=== PATIENT | female | born 1975 | race Caucasian/White ===

== ENCOUNTER 2019-08-30 16:16 | Inpatient (IN) ==
[2019-08-30 19:39] LABS: BASOPHILS # (AUTO) 0.1 X10^3/uL (0.0-0.1); BASOPHILS % (AUTO) 0.4 % (0.2-1.0); HEMATOCRIT 20.3 % (36.0-47.0); LYMPHOCYTES # (AUTO) 0.5 X10^3/uL (1.3-2.9); LYMPHOCYTES % (AUTO) 3.5 % (21.0-51.0); MEAN CORPUSCULAR HEMOGLOBIN 26.6 pg (27.0-34.0); MEAN CORPUSCULAR HGB CONC 32.8 g/dL (33.0-35.0); MEAN PLATELET VOLUME 7.8 fL (7.4-11.0); MONOCYTES # (AUTO) 0.6 x10^3/uL (0.3-0.8); MONOCYTES % (AUTO) 4.2 % (0.0-13.0); NEUTROPHILS # (AUTO) 13.4 x10^3/uL (2.2-4.8); NEUTROPHILS % (AUTO) 91.9 % (42.0-75.0); PLATELET COUNT 360 X10^3/uL (150.0-450.0); RED CELL DISTRIBUTION WIDTH 15.1 % (11.6-16.5); WHITE BLOOD COUNT 14.6 X10^3/uL (3.6-10.0)
[2019-08-30 19:48] LABS: BAND NEUTROPHILS % 3 % (0-10); HEMOGLOBIN 6.7 g/dL (12.0-16.0)
[2019-08-30 19:49] LABS: PLATELET MORPHOLOGY COMMENT NORMAL (NORMAL)
[2019-08-30 19:54] LABS: ALBUMIN 1.9 g/dL (3.4-5.0); CALCIUM 8.4 mg/dL (8.5-10.1); COR CA(FOR HYPOALB) 10.1 mg/dL (8.5-10.1); CREATININE 3.56 mg/dL (0.55-1.02); TOTAL PROTEIN 8.7 g/dL (6.4-8.2)
[2019-08-31 05:41] LABS: BASOPHILS # (AUTO) 0.1 X10^3/uL (0.0-0.1); BASOPHILS % (AUTO) 1.1 % (0.2-1.0); EOSINOPHILS % (AUTO) 0.6 % (0.9-2.9); LYMPHOCYTES # (AUTO) 0.9 X10^3/uL (1.3-2.9); LYMPHOCYTES % (AUTO) 10.4 % (21.0-51.0); MEAN CORPUSCULAR HEMOGLOBIN 27.4 pg (27.0-34.0); MEAN CORPUSCULAR HGB CONC 33.6 g/dL (33.0-35.0); MEAN CORPUSCULAR VOLUME 81.6 fL (80.0-100.0); MEAN PLATELET VOLUME 8.4 fL (7.4-11.0); MONOCYTES # (AUTO) 0.5 x10^3/uL (0.3-0.8); MONOCYTES % (AUTO) 5.9 % (0.0-13.0); NEUTROPHILS # (AUTO) 6.9 x10^3/uL (2.2-4.8); PLATELET COUNT 277 X10^3/uL (150.0-450.0); RED BLOOD COUNT 2.19 X10^6/uL (3.5-5.4); RED CELL DISTRIBUTION WIDTH 15.1 % (11.6-16.5); WHITE BLOOD COUNT 8.5 X10^3/uL (3.6-10.0)
[2019-08-31 05:56] LABS: ALBUMIN 1.8 g/dL (3.4-5.0); CALCIUM 8.3 mg/dL (8.5-10.1); CARBON DIOXIDE 21.1 mmol/L (21-32); COR CA(FOR HYPOALB) 10.1 mg/dL (8.5-10.1); CREATININE 3.85 mg/dL (0.55-1.02); TOTAL PROTEIN 8.2 g/dL (6.4-8.2)
[2019-08-31 06:10] LABS: HEMATOCRIT 17.9 % (36.0-47.0)
[2019-08-31 09:14] VITALS: BMI 39.7
[2019-09-01 05:55] LABS: BASOPHILS # (AUTO) 0.1 X10^3/uL (0.0-0.1); BASOPHILS % (AUTO) 1.1 % (0.2-1.0); EOSINOPHILS # (AUTO) 0.1 x10^3/uL (0.0-0.2); EOSINOPHILS % (AUTO) 2.1 % (0.9-2.9); LYMPHOCYTES # (AUTO) 1.2 X10^3/uL (1.3-2.9); LYMPHOCYTES % (AUTO) 20.1 % (21.0-51.0); MEAN CORPUSCULAR HEMOGLOBIN 27.4 pg (27.0-34.0); MEAN CORPUSCULAR HGB CONC 33.7 g/dL (33.0-35.0); MEAN CORPUSCULAR VOLUME 81.5 fL (80.0-100.0); MONOCYTES # (AUTO) 0.4 x10^3/uL (0.3-0.8); MONOCYTES % (AUTO) 7.2 % (0.0-13.0); NEUTROPHILS # (AUTO) 4.1 x10^3/uL (2.2-4.8); NEUTROPHILS % (AUTO) 69.5 % (42.0-75.0); PLATELET COUNT 273 X10^3/uL (150.0-450.0); RED BLOOD COUNT 2.08 X10^6/uL (3.5-5.4); RED CELL DISTRIBUTION WIDTH 15.1 % (11.6-16.5); WHITE BLOOD COUNT 5.9 X10^3/uL (3.6-10.0)
[2019-09-01 05:56] LABS: ALANINE AMINOTRANSFERASE 6 Units/L (12-78); ALBUMIN 1.7 g/dL (3.4-5.0); ALKALINE PHOSPHATASE 66 Units/L (46-116); ASPARTATE AMINO TRANSFERASE 13 Units/L (15-37); BLOOD UREA NITROGEN 70 mg/dL (7-18); CARBON DIOXIDE 21.4 mmol/L (21-32); CHLORIDE 102 mmol/L (98-107); COR CA(FOR HYPOALB) 9.8 mg/dL (8.5-10.1); CREATININE 3.93 mg/dL (0.55-1.02); SODIUM 135 mmol/L (136-145); TOTAL PROTEIN 7.8 g/dL (6.4-8.2); eGFR NON BLACK RACES 13 (>60)
[2019-09-01 06:07] LABS: HEMOGLOBIN 5.7 g/dL (12.0-16.0)
[2019-09-02 06:18] LABS: BASOPHILS # (AUTO) 0.1 X10^3/uL (0.0-0.1); BASOPHILS % (AUTO) 1.1 % (0.2-1.0); EOSINOPHILS # (AUTO) 0.2 x10^3/uL (0.0-0.2); EOSINOPHILS % (AUTO) 2.3 % (0.9-2.9); HEMATOCRIT 23.9 % (36.0-47.0); LYMPHOCYTES # (AUTO) 1.1 X10^3/uL (1.3-2.9); LYMPHOCYTES % (AUTO) 16.8 % (21.0-51.0); MEAN CORPUSCULAR HEMOGLOBIN 27.9 pg (27.0-34.0); MEAN CORPUSCULAR HGB CONC 33.6 g/dL (33.0-35.0); MEAN CORPUSCULAR VOLUME 83.1 fL (80.0-100.0); MEAN PLATELET VOLUME 8.6 fL (7.4-11.0); MONOCYTES # (AUTO) 0.3 x10^3/uL (0.3-0.8); MONOCYTES % (AUTO) 4.9 % (0.0-13.0); NEUTROPHILS # (AUTO) 5.1 x10^3/uL (2.2-4.8); NEUTROPHILS % (AUTO) 74.9 % (42.0-75.0); PLATELET COUNT 334 X10^3/uL (150.0-450.0); RED BLOOD COUNT 2.87 X10^6/uL (3.5-5.4); RED CELL DISTRIBUTION WIDTH 15.1 % (11.6-16.5); WHITE BLOOD COUNT 6.8 X10^3/uL (3.6-10.0)
[2019-09-02 06:40] LABS: ALANINE AMINOTRANSFERASE 8 Units/L (12-78); ALBUMIN 1.9 g/dL (3.4-5.0); ALKALINE PHOSPHATASE 67 Units/L (46-116); ASPARTATE AMINO TRANSFERASE 14 Units/L (15-37); BLOOD UREA NITROGEN 62 mg/dL (7-18); CALCIUM 8.3 mg/dL (8.5-10.1); CARBON DIOXIDE 19.5 mmol/L (21-32); CHLORIDE 104 mmol/L (98-107); CREATININE 3.31 mg/dL (0.55-1.02); SODIUM 137 mmol/L (136-145); TOTAL PROTEIN 8.2 g/dL (6.4-8.2); eGFR NON BLACK RACES 16 (>60)
[2019-09-03 06:23] LABS: ALANINE AMINOTRANSFERASE 7 Units/L (12-78); ALBUMIN 1.7 g/dL (3.4-5.0); ALKALINE PHOSPHATASE 67 Units/L (46-116); ASPARTATE AMINO TRANSFERASE 11 Units/L (15-37); BLOOD UREA NITROGEN 49 mg/dL (7-18); CALCIUM 7.8 mg/dL (8.5-10.1); CHLORIDE 106 mmol/L (98-107); COR CA(FOR HYPOALB) 9.6 mg/dL (8.5-10.1); CREATININE 2.78 mg/dL (0.55-1.02); SODIUM 137 mmol/L (136-145); TOTAL PROTEIN 7.7 g/dL (6.4-8.2); eGFR NON BLACK RACES 20 (>60)
[2019-09-03 06:45] LABS: BASOPHILS # (AUTO) 0.1 X10^3/uL (0.0-0.1); BASOPHILS % (AUTO) 0.9 % (0.2-1.0); EOSINOPHILS # (AUTO) 0.2 x10^3/uL (0.0-0.2); EOSINOPHILS % (AUTO) 2.4 % (0.9-2.9); HEMATOCRIT 23.6 % (36.0-47.0); HEMOGLOBIN 7.9 g/dL (12.0-16.0); LYMPHOCYTES # (AUTO) 1.3 X10^3/uL (1.3-2.9); LYMPHOCYTES % (AUTO) 18.6 % (21.0-51.0); MEAN CORPUSCULAR HEMOGLOBIN 27.9 pg (27.0-34.0); MEAN CORPUSCULAR HGB CONC 33.5 g/dL (33.0-35.0); MEAN CORPUSCULAR VOLUME 83.1 fL (80.0-100.0); MEAN PLATELET VOLUME 7.9 fL (7.4-11.0); MONOCYTES # (AUTO) 0.3 x10^3/uL (0.3-0.8); MONOCYTES % (AUTO) 4.8 % (0.0-13.0); NEUTROPHILS # (AUTO) 5.1 x10^3/uL (2.2-4.8); NEUTROPHILS % (AUTO) 73.3 % (42.0-75.0); PLATELET COUNT 344 X10^3/uL (150.0-450.0); RED BLOOD COUNT 2.84 X10^6/uL (3.5-5.4); RED CELL DISTRIBUTION WIDTH 15.5 % (11.6-16.5); WHITE BLOOD COUNT 6.9 X10^3/uL (3.6-10.0)
[2019-09-03 07:40] LABS: PLATELET MORPHOLOGY COMMENT NORMAL (NORMAL)
[2019-09-04 05:27] LABS: ALANINE AMINOTRANSFERASE 6 Units/L (12-78); ALBUMIN 1.7 g/dL (3.4-5.0); ALKALINE PHOSPHATASE 60 Units/L (46-116); ASPARTATE AMINO TRANSFERASE 11 Units/L (15-37); BLOOD UREA NITROGEN 43 mg/dL (7-18); CALCIUM 7.8 mg/dL (8.5-10.1); CARBON DIOXIDE 19.2 mmol/L (21-32); CHLORIDE 108 mmol/L (98-107); COR CA(FOR HYPOALB) 9.6 mg/dL (8.5-10.1); CREATININE 2.74 mg/dL (0.55-1.02); SODIUM 139 mmol/L (136-145); TOTAL PROTEIN 7.4 g/dL (6.4-8.2); eGFR NON BLACK RACES 20 (>60)
[2019-09-04 06:04] LABS: BASOPHILS % (AUTO) 0.2 % (0.2-1.0); EOSINOPHILS # (AUTO) 0.3 x10^3/uL (0.0-0.2); EOSINOPHILS % (AUTO) 5.1 % (0.9-2.9); HEMATOCRIT 27.8 % (36.0-47.0); HEMOGLOBIN 9.3 g/dL (12.0-16.0); LYMPHOCYTES # (AUTO) 1.2 X10^3/uL (1.3-2.9); LYMPHOCYTES % (AUTO) 19.4 % (21.0-51.0); MEAN CORPUSCULAR HEMOGLOBIN 28.2 pg (27.0-34.0); MEAN CORPUSCULAR HGB CONC 33.3 g/dL (33.0-35.0); MEAN CORPUSCULAR VOLUME 84.7 fL (80.0-100.0); MEAN PLATELET VOLUME 7.4 fL (7.4-11.0); MONOCYTES # (AUTO) 0.4 x10^3/uL (0.3-0.8); NEUTROPHILS # (AUTO) 4.2 x10^3/uL (2.2-4.8); NEUTROPHILS % (AUTO) 68.3 % (42.0-75.0); PLATELET COUNT 313 X10^3/uL (150.0-450.0); RED BLOOD COUNT 3.28 X10^6/uL (3.5-5.4); RED CELL DISTRIBUTION WIDTH 16.3 % (11.6-16.5); WHITE BLOOD COUNT 6.2 X10^3/uL (3.6-10.0)
[2019-09-05 06:47] LABS: ALANINE AMINOTRANSFERASE 6 Units/L (12-78); ALBUMIN 1.8 g/dL (3.4-5.0); ALKALINE PHOSPHATASE 57 Units/L (46-116); ASPARTATE AMINO TRANSFERASE 14 Units/L (15-37); BLOOD UREA NITROGEN 35 mg/dL (7-18); CALCIUM 7.6 mg/dL (8.5-10.1); CARBON DIOXIDE 17.4 mmol/L (21-32); CHLORIDE 109 mmol/L (98-107); COR CA(FOR HYPOALB) 9.4 mg/dL (8.5-10.1); CREATININE 2.54 mg/dL (0.55-1.02); SODIUM 140 mmol/L (136-145); TOTAL PROTEIN 7.6 g/dL (6.4-8.2); eGFR NON BLACK RACES 22 (>60)
[2019-09-08 16:14] VITALS: BP 169/89
== END 2019-09-08 21:35 | disposition home or self-care (01) ==
LOC: ER 16:20 → MED/SURG 21:16
PROVIDERS: ADMIT Obstetrics & Gynecology Obstetrics; ATTEND Obstetrics & Gynecology Obstetrics

== ENCOUNTER 2021-09-04 11:13 | Inpatient (IN) ==
--- NOTE | 2021-09-04 11:48 | DR.EXTPAIN ---
HPI Time seen Time Seen by Provider: 09/04/21 11:39 Complaint/Symptoms Chief Complaint Doctor Comments: 46 y/o female presents for evaluation. Having weakness of both legs over the past several weeks, with increased swelling. Having great difficulty getting out of a chair due to the weakness. Slid to the floor last week, couldn't get off the floor without assistance. Having shortness of breath at times, worse with exertion. + h/o HTN, off meds past 1-2 years. Unemployed, no health insurance, doesn't have a primary care provider. Denies fever, chills, chest pain, cough, nausea, vomiting, bowel or bladder issues. Occasional pain of low back, does not radiate down legs. Legs weak, needs help getting legs into the car. H/o neuropathy of lower exts. COVID-19 Coronavirus risk:travel/contact w/high risk person: No Has patient experienced Coronavirus symptoms: No Nurses notes reviewed Nurses Notes Review: Yes Source History Provided: Patient Mode of arrival Mode of Arrival: Wheelchair PMH PMH Past Medical History: CVA, Diabetes and Hypertension Past Surgical History: Yes Surgical History: Ortho Surgery Family History Family Medical History: Diabetes Mellitus and Hypertension Social History Do you use any recreational Drugs:: No ROS Review of Systems Constitutional: Weakness Eyes: No Symptoms Reported ENTM: No Symptoms Reported Respiratoy: No Symptoms Reported Cardiovascular: No Symptoms Reported Gastrointestinal/Abdominal: No Symptoms Reported Genitourinary: No Symptoms Reported Neurological: Weakness Musculoskeletal: No Symptoms Reported Integumentary: No Symptoms Reported Hematologic/Lymphatic: No Symptoms Reported Endocrine: No Symptoms Reported Psychiatric: No Symptoms Reported All Other Systems: Reviewed and Negative PE Vital Signs Vitals: Temperature 98.5 F Pulse Rate 90 Respiratory Rate 20 Blood Pressure [Right Arm] 134/63 Blood Pressure [Left Arm] 169/89 Blood Pressure 142/89 O2 Sat by Pulse Oximetry 96 General Limitations: No Limitations General Appearance: Alert and In No Apparent Distress Eyes Eye exam: PERRL and EOMI ENT ENT Exam: Normal Exam Neck Neck Exam: Normal Inspection and Full ROM Chest Chest Inspection: Normal Inspection Respiratory Respiratory Exam: negative Accessory Muscle Use and Respiratory Distress Respiratory Exam: Bilateral: Decreased Breath Sounds (at the bases) Cardiovascular Cardiovascular Exam: Regular Rate, Normal Rhythm and Normal Heart Sounds Abdominal Exam Abdominal Exam: Normal Inspection, Normal Bowel Sounds and Soft; negative Tenderness Extremities Extremities Exam: Edema (4+, bilateral lower exts, with some presacral edema as well.) Back Back Exam: negative Tenderness Neurological Neurological Exam: Alert, Oriented X3 and CN II-XII Intact; negative Motor Sensory Deficit Psychiatric Psychiatric Exam: Normal Affect Skin Skin Exam: Warm and Dry MDM Differential Diagnosis Differential Diagnosis: Other (edema, electrolyte abn, PMR, DDD) COURSE Treatment Treatment: 46 y/o female with swelling and weakness of both her legs for some time. W/u initiated. Pt given IV lasix. 1325 - CXR with cadiomegaly, fluid overload. BNP elevated to 917, c/w CHF. Cr chronic elevated at 2.83 (compared to labs 2 years ago). CRP elevated as well, 7.8. Possible component of PMR, with her fluid overload. Given one time dose of decadron for possible PMR. Will give additional dose of IV lasix now, admit to observation , with IV lasix BID. Discussed with Dr Kennedy, accepts the admission. ROR Labs Reviewed Laboratory Results Reviewed?: Yes Result Diagrams: 09/04/21 11:59 09/04/21 11:59 Laboratory: WBC 5.5 X10^3/uL (3.6-10.0) 09/04/21 11:59 RBC 4.20 X10^6/uL (3.5-5.4) 09/04/21 11:59 Hgb 11.3 g/dL (12.0-16.0) L 09/04/21 11:59 Hct 34.8 % (36.0-47.0) L 09/04/21 11:59 MCV 82.7 fL (80.0-100.0) 09/04/21 11:59 MCH 26.9 pg (27.0-34.0) L 09/04/21 11:59 MCHC 32.5 g/dL (33.0-35.0) L 09/04/21 11:59 RDW 17.6 % (11.6-16.5) H 09/04/21 11:59 Plt Count 230 X10^3/uL (150.0-450.0) 09/04/21 11:59 MPV 7.8 fL (7.4-11.0) 09/04/21 11:59 Neut % (Auto) 81.1 % (42.0-75.0) H 09/04/21 11:59 Lymph % (Auto) 10.4 % (21.0-51.0) L 09/04/21 11:59 [place] % (Auto) 6.0 % (0.0-13.0) 09/04/21 11:59 Eos % (Auto) 1.3 % (0.9-2.9) 09/04/21 11:59 Baso % (Auto) 1.2 % (0.2-1.0) H 09/04/21 11:59 Neut # (Auto) 4.5 x10^3/uL (2.2-4.8) 09/04/21 11:59 Lymph # (Auto) 0.6 X10^3/uL (1.3-2.9) L 09/04/21 11:59 [place] # (Auto) 0.3 x10^3/uL (0.3-0.8) 09/04/21 11:59 Eos # (Auto) 0.1 x10^3/uL (0.0-0.2) 09/04/21 11:59 Baso # (Auto) 0.1 X10^3/uL (0.0-0.1) 09/04/21 11:59 Absolute Nucleated RBC 0.1 /100WBC 09/04/21 11:59 Sodium 141 mmol/L (136-145) 09/04/21 11:59 Corrected Sodium 141 mmol/L (136-145) 09/04/21 11:59 Potassium 4.6 mmol/L (3.5-5.1) 09/04/21 11:59 Chloride 108 mmol/L (98-107) H 09/04/21 11:59 Carbon Dioxide 24.4 mmol/L (21-32) 09/04/21 11:59 BUN 43 mg/dL (7-18) H 09/04/21 11:59 Creatinine 2.83 mg/dL (0.55-1.02) H 09/04/21 11:59 Est GFR (MDRD) Af Amer 23 (>60) L 09/04/21 11:59 Est GFR (MDRD) Non-Af 19 (>60) L 09/04/21 11:59 Glucose 117 mg/dL (65-99) H 09/04/21 11:59 Calcium 7.7 mg/dL (8.5-10.1) L 09/04/21 11:59 Corrected Calcium 8.7 mg/dL (8.5-10.1) 09/04/21 11:59 Total Bilirubin 0.20 mg/dL (0.2-1.0) 09/04/21 11:59 AST 9 Units/L (15-37) L 09/04/21 11:59 ALT 9 Units/L (12-78) L 09/04/21 11:59 Alkaline Phosphatase 77 Units/L (46-116) 09/04/21 11:59 C-Reactive Protein 7.80 mg/L (0-3.0) H 09/04/21 11:59 B-Natriuretic Peptide 917 pg/mL (0-79) H* 09/04/21 11:59 Total Protein 6.4 g/dL (6.4-8.2) 09/04/21 11:59 Albumin 2.7 g/dL (3.4-5.0) L 09/04/21 11:59 Globulin 3.7 g/dL (2.5-4.5) 09/04/21 11:59 Albumin/Globulin Ratio 0.7 Ratio (1.1-2.1) L 09/04/21 11:59 Lipase 78 Units/L (73-393) 09/04/21 11:59 TSH 3rd Generation 2.274 uIU/mL (0.358-3.74) 09/04/21 11:59 XRAY XRAY Interpreted by: Both X-ray Results: + cardiomeglay with pulmonary edema EKG Rate: 88 [place]: Normal Rhythm: NSR Block: None ST: Nonsp (+ low voltage QRS ) Opioid Opioid Risk Tool Age (Van box if 16-45): Yes History of Preadolescent Sexual Abuse: No Total: 1 Total Score Risk Category: Low Risk Copyright: Tor BAEZ predicting aberrant behaviors Diagnosis Discharge Problem: Anasarca CHF (congestive heart failure) Qualifiers: Heart failure type: unspecified Heart failure chronicity: unspecified Qualified Code(s): I50.9 - Heart failure, unspecified
[2021-09-04] MEDS ORDERED: LASIX IVP ONE ×4 (11:49→13:59)
[2021-09-04 12:08] LABS: BASOPHILS # (AUTO) 0.1 X10^3/uL (0.0-0.1); BASOPHILS % (AUTO) 1.2 % (0.2-1.0); EOSINOPHILS # (AUTO) 0.1 x10^3/uL (0.0-0.2); EOSINOPHILS % (AUTO) 1.3 % (0.9-2.9); HEMATOCRIT 34.8 % (36.0-47.0); HEMOGLOBIN 11.3 g/dL (12.0-16.0); LYMPHOCYTES # (AUTO) 0.6 X10^3/uL (1.3-2.9); LYMPHOCYTES % (AUTO) 10.4 % (21.0-51.0); MEAN CORPUSCULAR HEMOGLOBIN 26.9 pg (27.0-34.0); MEAN CORPUSCULAR HGB CONC 32.5 g/dL (33.0-35.0); MEAN CORPUSCULAR VOLUME 82.7 fL (80.0-100.0); MEAN PLATELET VOLUME 7.8 fL (7.4-11.0); MONOCYTES # (AUTO) 0.3 x10^3/uL (0.3-0.8); NEUTROPHILS # (AUTO) 4.5 x10^3/uL (2.2-4.8); NEUTROPHILS % (AUTO) 81.1 % (42.0-75.0); RED CELL DISTRIBUTION WIDTH 17.6 % (11.6-16.5); WHITE BLOOD COUNT 5.5 X10^3/uL (3.6-10.0)
[2021-09-04 12:30] LABS: ALBUMIN 2.7 g/dL (3.4-5.0); CALCIUM 7.7 mg/dL (8.5-10.1); CARBON DIOXIDE 24.4 mmol/L (21-32); COR CA(FOR HYPOALB) 8.7 mg/dL (8.5-10.1); CREATININE 2.83 mg/dL (0.55-1.02); TOTAL PROTEIN 6.4 g/dL (6.4-8.2); TSH (3RD GENERATION) 2.274 uIU/mL (0.358-3.74)
[2021-09-04] MEDS ORDERED: DECADRON INJ IVP ONE (13:41)
--- NOTE | 2021-09-04 13:45 | RAD ---
HISTORYHypertension week diabetes CHFSTUDYAP [id number] aphic detail on this nonstandard exam is markedly reduced. There is suggestion of cardiomegaly and bilateral pulmonary edema. The lung bases are obscured. There is no obvious pneumothorax.IMPRESSIONProbable cardiomegaly and CHF/edema. See above. Repeat exam is recommended, standard views if possible.Electronically signed by: KAMARI ROBERTS (September 04, 2021 13:44:12)
[2021-09-04] MEDS ORDERED: DECADRON INJ ONE (13:53)
[2021-09-04 14:24] LABS: CKMB % 3.6 % (<4); CREATINE KINASE MB 1.6 ng/mL (0-4.0)
[2021-09-04 16:15] VITALS: BMI 50.5
[2021-09-04] MEDS ORDERED: LASIX IVP SCH ×2 (17:00→20:00)
[2021-09-04] MEDS ORDERED: TYGACIL 50 MG VIAL 100 MG in NS 100 ML IV 100 ML IV ONE (19:26)
[2021-09-04 20:09] LABS: BILIRUBIN,URINE NEGATIVE (NEGATIVE); BLOOD/HEMOGLOBIN,URINE 2+ (NEGATIVE); GLUCOSE, URINE NEGATIVE (NEGATIVE); KETONES,URINE NEGATIVE (NEGATIVE); LEUKOCYTE ESTERASE ,URINE NEGATIVE (NEGATIVE); NITRITES,URINE NEGATIVE (NEGATIVE); PROTEIN,URINE 4+ (NEGATIVE); UROBILINOGEN,URINE NORMAL (NORMAL)
[2021-09-04 20:15] LABS: APPEARANCE,URINE CLEAR (CLEAR); BACTERIA,URINE TRACE /HPF (NEGATIVE); COLOR,URINE PALE YELLOW (YELLOW); SQUAMOUS EPITHELIAL CELL,UR FEW /HPF (NEGATIVE)
[2021-09-04] MEDS ORDERED: NS 250 ML IV 250 ML IV ONE (20:30)
[2021-09-04] MEDS: LOPRESSOR TAB 25 MG PO SCH (20:53)
[2021-09-04] MEDS: ZESTRIL TAB 5 MG PO SCH (20:53)
[2021-09-04] MEDS: ALBUMIN HUMAN 25%- 100 ML 100 ML IV SCH (20:55)
[2021-09-04] MEDS: LASIX IVP SCH (22:15)
[2021-09-05] MEDS ORDERED: NovoLIN R (or HumuLIN R) SC PRN (05:15)
[2021-09-05 06:11] LABS: BASOPHILS % (AUTO) 0.4 % (0.2-1.0); HEMATOCRIT 34.4 % (36.0-47.0); HEMOGLOBIN 11.1 g/dL (12.0-16.0); LYMPHOCYTES # (AUTO) 0.5 X10^3/uL (1.3-2.9); LYMPHOCYTES % (AUTO) 11.2 % (21.0-51.0); MEAN CORPUSCULAR HEMOGLOBIN 26.6 pg (27.0-34.0); MEAN CORPUSCULAR HGB CONC 32.2 g/dL (33.0-35.0); MEAN CORPUSCULAR VOLUME 82.5 fL (80.0-100.0); MEAN PLATELET VOLUME 7.9 fL (7.4-11.0); MONOCYTES # (AUTO) 0.4 x10^3/uL (0.3-0.8); MONOCYTES % (AUTO) 8.1 % (0.0-13.0); NEUTROPHILS # (AUTO) 3.9 x10^3/uL (2.2-4.8); NEUTROPHILS % (AUTO) 80.3 % (42.0-75.0); RED BLOOD COUNT 4.17 X10^6/uL (3.5-5.4); RED CELL DISTRIBUTION WIDTH 17.6 % (11.6-16.5); WHITE BLOOD COUNT 4.9 X10^3/uL (3.6-10.0)
[2021-09-05 06:20] LABS: HEMOGLOBIN A1C 6.9 %
[2021-09-05 06:22] LABS: ALBUMIN 2.9 g/dL (3.4-5.0); CALCIUM 7.9 mg/dL (8.5-10.1); CARBON DIOXIDE 23.8 mmol/L (21-32); COR CA(FOR HYPOALB) 8.8 mg/dL (8.5-10.1); CREATININE 2.95 mg/dL (0.55-1.02); TOTAL PROTEIN 6.5 g/dL (6.4-8.2)
[2021-09-05] MEDS ORDERED: TYGACIL 50 MG VIAL 50 MG in NS 100 ML IV 100 ML IV SCH (08:00)
[2021-09-05] MEDS ORDERED: LOVENOX INJ 40 MG SYR SC SCH (10:00)
[2021-09-05] MEDS: ALBUMIN HUMAN 25%- 100 ML 100 ML IV SCH (10:33)
[2021-09-05] MEDS: ZESTRIL TAB 5 MG PO SCH (10:33)
[2021-09-05] MEDS: LOPRESSOR TAB 25 MG PO SCH (10:33)
[2021-09-05] MEDS: LASIX IVP SCH (10:34)
--- NOTE | 2021-09-05 11:20 | VAS ---
HISTORY: Extremity pain, swelling, and edemaStudy: Bilateral lower extremity Doppler venous ultrasound.TECHNIQUE: Multiple mari scale and color flow Doppler images of the deep venous system were obtained of the [right and left] lower extremity.FINDINGS: The deep venous system of the right and left lower extremities were evaluated from the level of the common femoral veins through the popliteal veins, bilaterally. Normal color flow and augmentation can be observed. In addition, normal compression is seen throughout the deep venous system. No Armando's cyst is seen.IMPRESSION:1. Negative examination for DVT.Electronically signed by: NEY TURCIOS III (September 05, 2021 11:18:53)
--- NOTE | 2021-09-05 11:31 | RAD ---
HISTORYCHF, SOB HTN, DM, CHF, ORTHOSTUDYCHEST, PA/LAT [id number] is midline. There is large body habitus with attenuation of the bases by soft tissues; however there is possible trace effusion in the left and minimal in the right, there is elevation of the right diaphragm, there has been interval improvement of previously seen perihilar infiltrates and central congestion. There is no evidence of pulmonary edema. There are possible left lower lobe radiopacities that could represent atelectasis.IMPRESSIONImprovement of previously seen central congestion. Possible bilateral small effusions left more than right. Large body habitus.Electronically signed by: Ana Norris (September 05, 2021 11:29:58)
[2021-09-05 13:01] VITALS: BP 146/80
--- NOTE | 2021-09-05 13:45 | DR.H&P ---
H&P - History & Physical for Day of: H&P Date: 09/04/21 - Chief Complaint Chief Complaint: SOB, LOWER LEG WEAKNESS - History of Present Illness History of Present Illness: 46 y/o female, ER admission after presenting with co weakness of both legs over the past several weeks, with increased swelling. Having great difficulty getting out of a chair due to the weakness. Slid to the floor last week, couldn't get off the floor without assistance. Having shortness of breath with exertion. + h/o HTN, off meds past 1-2 years. Denies fever, chills, chest pain, cough, nausea, vomiting, bowel or bladder issues. Pt has PMH of diabetes, HTN and "stroke" in 2017. Pt admitted for treatment of acute illness. - Past Medical History Past Medical History: Hypertension, Diabetes, CVA - Past Surgical History Surgical History: Ortho Surgery - Family History Family Medical History: Diabetes Mellitus, Hypertension - Social History Does patient currently use any type of tobacco product: No Have you used tobacco products in the last 12 months: No Type of Tobacco Use: None Does any household member use tobacco: No Alcohol Use: None Drug Use: None - Medications Home Medications: vancomycin Allergy (Verified 08/31/19 00:52) - Review of Systems Constitutional: Weakness Eyes: No Symptoms Reported ENT: No Symptoms Reported Respiratory: Shortness of Breath Cardiovascular: Edema Gastrointestinal: Nausea Genitourinary: No Symptoms Reported Musculoskeletal: Back Pain, Leg Pain Skin: Wound Neurological: Weakness (to bilateral lower extremities) - Physical Exam Vital Signs: Temperature 98.3 F Pulse Rate [Left Brachial] 72 Pulse Rate 92 Respiratory Rate 20 Blood Pressure [Right Arm] 146/80 Blood Pressure [Left Arm] 132/73 Blood Pressure 142/89 O2 Sat by Pulse Oximetry 96 Oriented: Normal Eyes: Normal Ear: Normal Nose: Normal Throat: Dry Respiratory: RML Diminished, RLL Diminished, LML Diminished, LLL Diminished Cardiovascular: Murmur, Edema (+4pitting to RLE, +2 LLE) : Normal Auscultation: Bowel Sounds: Normal Palpation: Normal Tenderness: Normal Skin: Red (bilateral lower extremity erythema, worse to right posterior lower leg), Wound Musculoskeletal: Deformity (left 1 & 2nd toes amputated), Motor Deficit, Sensory Deficit Mood Description: Calm Speech Pattern: Clear, Appropriate - Assessment/Plan (1) SOB (shortness of breath) Status: Acute Plan: ADMIT, SERIAL CE MONITORING. BP CONTROL, IV LASIX, STRICT I&S, ECHO. SERIAL EKG, SUPPLEMENTAL O2. LOVENOX, LOWER EXTREMITY US. BLOOD CULTURES ON ADMISSION, REPEAT AM CXR. BB, ASPIRIN. BS CONTROL, VERIFY HOME MEDICATION (2) CHF (congestive heart failure) Qualifiers: Heart failure type: unspecified Heart failure chronicity: unspecified Qualified Code(s): I50.9 - Heart failure, unspecified Status: Acute (3) Hypertension Status: Acute (4) Lower extremity edema Status: Acute (5) Cellulitis and abscess of foot Status: Acute (6) CKD (chronic kidney disease) stage 4, GFR 15-29 ml/min Status: Chronic - Allergies Allergies/Adverse Reactions: Allergies Allergy/AdvReac Type Severity Reaction Status Date / Time vancomycin Allergy Verified 08/31/19 00:52
--- NOTE | 2021-10-08 12:10 | PCM.DCPLAN ---
Discharge Plan - Discharge Plan Hospital Course: Admit date 09/04/21 Discharge date 09/05/21 DOS 09/05/21 Admit Diagnosis(1) SOB (shortness of breath) (2) CHF (congestive heart failure) (3) Hypertension (4) Lower extremity edema (5) Cellulitis of foot (6) CKD (chronic kidney disease) stage 4, GFR 15-29 ml/min (7) Morbid obesity (8) Noncompliance Discharge Diagnosis SAME Hospital Course Patient is a 46 y/o female, ER admission after presenting with co weakness of both legs over the past several weeks, with increased swelling. Having great difficulty getting out of a chair due to the weakness. Slid to the floor last week, couldn't get off the floor without assistance. Having shortness of breath with exertion. + h/o HTN, off meds past 1-2 years. Denies fever, chills, chest pain, cough, nausea, vomiting, bowel or bladder issues. Pt has PMH of diabetes, HTN and "stroke" in 2017. Pt admitted for treatment of acute illness. Patient was transferred to [facility] in [place] [facility] for further eval and treatment of chf exacerbation and anasarca. Greater than 60 mins spent on TRANSFER Disposition: XF [facility] HOSP Condition: Stable Health Concerns: Post Hospitalization: new medications and changes needed to prevent readmission or further decline. Pt educated and given instructions on all concerns. Plan of Treatment: Continue with present treatment and follow up plan. Pt is to keep follow up appointment as instructed and take medications as ordered. - Orders to Discharge Patient Discharge Orders: Discharge by Transfer to Outside Facility (Routine); Ordered 09/05/21 Ordered By: RANDI ANSARI - Follow ups/Referrals Follow ups/Referrals: NFD,None [Primary Care Provider] - 1 WEEK - Instructions Print Language: MACEDONIAN
== END 2021-09-05 15:30 | disposition critical access hospital (66) | DRG 292 ==
LOC: ER 11:13 → MED/SURG 11:13 → OBSVTOIN 13:49 → MED/SURG 15:02
PROVIDERS: ADMIT Internal Medicine; ATTEND Internal Medicine